=== PATIENT | male | born 1950 | race Caucasian/White ===

== ENCOUNTER 2018-07-07 10:36 | Inpatient (IN) | payer MEDICAID, MEDICARE ==
[~2018-07-07] VITALS: Ht 162.6 cm; Wt 81.6 kg
--- NOTE | 2018-07-07 11:00 | NUR ---
PATIENT TO BED 6 VIA WHEELCHAIR AT THIS TIME.
[2018-07-07 11:05] VITALS: BP 141/87
--- NOTE | 2018-07-07 11:10 | NUR ---
PATIENT BIB CAREGIVER WITH C/O HYPOTHERMIA SINCE LAST NIGHT, TEMP 93.7F, PT IS AAOX2, (PERSON AND PLACE), BOTH EYES BLIND, ABLE TO FOLLOW COMMANDS, NO S/S OF DISTRESS, CLEAR LUNG SOUNDS, DENIES CHEST PAIN, PITTING EDEMA NOTED TO BLE, SOFT ABDOMEN WITH ACTIVE BOWEL SOUNDS, DENIES N/V/D, INCONTINENT WITH B&B'S, CONTRACTURES NOTED TO ALL EXTREMITIES. STATED GENERALIZED PAIN 10/10. PATIENT POSITIONED FOR COMFORT; HOB ELEVATED; BEDRAILS UP X2; BED DOWN. ER MD MADE AWARE OF PT STATUS.
[2018-07-07 12:05] LABS: BASOPHILS % (AUTO) 0.2 % (0.0-2.0); EOSINOPHILS # (AUTO) 0.3 K/uL (0-0.4); EOSINOPHILS % (AUTO) 5.4 % (0.0-4.0); HEMATOCRIT 39.1 % (36-52); HEMOGLOBIN 12.6 g/dL (12.0-18.0); LYMPHOCYTES # (AUTO) 1.5 K/uL (2.0-11.5); LYMPHOCYTES % (AUTO) 31.2 % (20.5-51.1); MEAN CORPUSCULAR HEMOGLOBIN 31 pg (27-31); MEAN CORPUSCULAR HGB CONC 32 g/dL (33-37); MEAN CORPUSCULAR VOLUME 96.4 fL (80-94); MONOCYTES # (AUTO) 0.4 K/uL (0.8-1.0); MONOCYTES % (AUTO) 9.5 % (1.7-9.3); NEUTROPHILS # (AUTO) 2.5 K/uL (1.8-7.7); NEUTROPHILS % (AUTO) 53.7 % (42.2-75.2); PLATELET COUNT (AUTO) 178 K/uL (140-450); RED BLOOD CELL COUNT(AUTO) 4.05 MIL/uL (4.20-6.10); RED CELL DISTRIBUTION WIDTH 13.9 % (11.6-13.7); WHITE BLOOD COUNT (AUTO) 4.7 K/uL (4.8-10.8)
[2018-07-07 12:16] LABS: ANION GAP 11.4 (8-16); CARBON DIOXIDE 30.5 mmol/L (21-32); CREATININE 1.2 mg/dL (0.7-1.3); POTASSIUM 4.9 mmol/L (3.5-5.1)
[2018-07-07 12:31] LABS: ALBUMIN 3.2 g/dL (3.4-5.0); TOTAL BILIRUBIN 0.2 mg/dL (0.0-1.0)
[2018-07-07 12:46] LABS: PROTHROMBIN TIME 10.4 secs (10.8-13.4)
[2018-07-07] MEDS ORDERED: LEVOFLOXACIN 500 MG/D5W PREMIX 100 ML IV ONE (12:55)
--- NOTE | 2018-07-07 12:58 | NUR ---
RECTAL TEMP OBTAINED 94.2F, DR. MONACO MADE AWARE.
[2018-07-07] MEDS ORDERED: ONDANSETRON 4 MG/2 ML VIAL IM/IVP PRN (13:05)
[2018-07-07] MEDS ORDERED: DOCUSATE SODIUM 100 MG GELCAP PO PRN (13:05)
[2018-07-07] MEDS ORDERED: HYDROcodone/APAP 5/325 MG 1 TAB TAB PO PRN (13:05)
[2018-07-07] MEDS ORDERED: ACETAMINOPHEN 325 MG TAB PO PRN (13:05)
--- NOTE | 2018-07-07 13:06 | NUR ---
# 14 FR Urinary catheter inserted utilizing sterile technique. Immediate return of 100 ml CLEAR YELLOW urine noted. Urine sample collected and sent to lab. Pt tolerated procedure WELL.
[2018-07-07] MEDS: NACL 0.9% 1,000 ML IV SCH (13:27)
[2018-07-07] MEDS ORDERED: ALBUTEROL SULFATE/IPRATROPIU 3 ML SOL IH PRN (14:00)
--- NOTE | 2018-07-07 14:08 | NUR ---
Patient will be admitted to care of DR BIRD. Admited to MED SURG. Will go to room 122 -A. Belongings list completed. Report to MARIZA DIXON.
[2018-07-07 14:11] LABS: APPEARANCE,URINE CLEAR (CLEAR); BILIRUBIN,URINE NEGATIVE (NEGATIVE); BLOOD, URINE NEGATIVE (NEGATIVE); COLOR,URINE YELLOW (YELLOW); LEUKOCYTE ESTERASE ,URINE NEGATIVE (NEGATIVE); NITRITE, URINE NEGATIVE (NEGATIVE); UGLUCOSE NEGATIVE (NEGATIVE)
[2018-07-07] MEDS ORDERED: ISOS20TA13 PO (14:11)
[2018-07-07] MEDS ORDERED: BRIM5SOL1 OP (14:11)
[2018-07-07] MEDS ORDERED: PRON INH (14:11)
[2018-07-07] MEDS ORDERED: PUL.5N INH (14:11)
[2018-07-07] MEDS ORDERED: CLOP75TA55 PO (14:11)
[2018-07-07] MEDS ORDERED: RANEX500 PO (14:11)
[2018-07-07] MEDS ORDERED: DOCU-299 PO (14:11)
[2018-07-07] MEDS ORDERED: LAM200 PO (14:11)
[2018-07-07] MEDS ORDERED: SENN-72 PO (14:11)
[2018-07-07] MEDS ORDERED: [UNRECOGNIZED DRUG - CODE] TP (14:11)
[2018-07-07] MEDS ORDERED: DORZ10SO1 OP (14:11)
[2018-07-07] MEDS ORDERED: ATOR20TA40 PO (14:11)
[2018-07-07] MEDS ORDERED: LISI-420 PO (14:11)
[2018-07-07] MEDS ORDERED: AMLO5TAB PO (14:11)
[2018-07-07] MEDS ORDERED: DUTA0.5C PO (14:11)
[2018-07-07] MEDS ORDERED: SERT25TA PO (14:11)
[2018-07-07] MEDS ORDERED: ASCO500T45 PO (14:20)
[2018-07-07] MEDS ORDERED: TIM.5OS OP (14:20)
[2018-07-07] MEDS ORDERED: CLON0.1T42 PO (14:20)
[2018-07-07] MEDS ORDERED: MAGN400S60 PO (14:20)
[2018-07-07] MEDS ORDERED: ACET-7568 PO (14:20)
[2018-07-07] MEDS ORDERED: NITR0.4S14 SL (14:20)
[2018-07-07] MEDS ORDERED: FEXO180T82 PO (14:20)
[2018-07-07 14:22] LABS: MAGNESIUM 2.1 mg/dL (1.8-2.4); PHOSPHORUS 4.6 mg/dL (2.5-4.9); THYROID STIMULATING HORMONE 2.61 uIU/mL (0.34-3.74)
[2018-07-07 14:30] VITALS: BP 157/87
--- NOTE | 2018-07-07 14:30 | NUR ---
PATIENT WAS TRANSFERRED FROM ED BY LUBA. REPORT WAS GIVEN AT BEDSIDE. VS WAS TAKEN. MRSA WAS SWABBED. PATIENT WAS DROWSY, ABLE TO OPEN EYES BY NAME, COOPERATIVE. RESPIRATION EVEN, UNLABOR ON ROOM AIR. SKIN DRY AND WARM. IV PATENT AND INTACT. DENIED PAIN AT THIS TIME. PATIENT WAS ORIENTED TO ROOM, STAFF, AND CALL LIGHT. PLAN OF CARE WAS DISCUSSED WITH PATIENT. BED AT LOW POSITION, SIDE RAILS UP. CALL LIGHT WITHIN REACH. MEDICAL HISTORY WAS OBTAINED FROM MARIANA RN AT RESIDENTIAL CARE.
[2018-07-07] MEDS ORDERED: cloNIDine 0.1 MG TAB PO PRN ×2 (14:35→16:45)
[2018-07-07] MEDS ORDERED: MAGNESIUM HYDROXIDE 2400 MG/30 ML UDC PO PRN ×2 (14:35→16:50)
[2018-07-07] MEDS ORDERED: NITROGLYCERIN 0.4 MG TAB SL PRN (14:35)
[2018-07-07] MEDS ORDERED: ISOS20TA11 PO (15:15)
[2018-07-07] MEDS ORDERED: ISOS30TE34 PO (15:15)
[2018-07-07 16:00] VITALS: BP 129/65
--- NOTE | 2018-07-07 16:30 | NUR ---
PATIENT LYING DOWN IN BED SLEEPING, AROUSABLE BY VOICE. NO DISTRESS NOTED. WILL CONTINUE TO MONITOR.
[2018-07-07] MEDS ORDERED: DORZOLAMIDE 2% OP 10 ML BTL RIGHT EYE SCH (17:00)
--- NOTE | 2018-07-07 17:21 | NUR ---
PATIENT LYING DOWN IN BED SLEEPING, AROUSABLE BY VOICE. SCHEDULED MEDICATIONS DUE GIVEN. WILL CONTINUE TO MONITOR.
--- NOTE | 2018-07-07 18:00 | NUR ---
APPLIED K PAD TO PATIENT CHEST AND WARM BLANKETS PER MD ORDERS. WILL CONTINUE TO MONITOR.
[2018-07-07] MEDS: CLINDAMYCIN 600 MG in DEXTROSE 5% 50 ML IV SCH ×2 (18:21→23:55)
--- NOTE | 2018-07-07 19:33 | NUR ---
GAVE REPORT TO DUPLEX TRIMMER NURSE FOR CONTINUITY OF CARE. PATIENT IN STABLE CONDITION.
--- NOTE | 2018-07-07 19:34 | NUR ---
RECEIVED BEDSIDE REPORT FROM DAY SHIFT NURSE DARYL RN, PT STABLE, NO DISTRESS NOTED, IV TO R HAND 22G PATENT, INTACT, INFUSING NS @ 60ML/HR, INFUSING WELL PT ON ROOM AIR, NO SOB, PT SLEEPING AT THIS MOMENT,INITIAL ASSESSMENT DONE, ALL SAFETY PRECAUTION MET, CALL LIGHT WITHIN REACH, WILL CONTINUE TO MONITOR.
[2018-07-07] MEDS: ALBUTEROL SULFATE/IPRATROPIU 3 ML SOL IH SCH (19:52)
[2018-07-07] MEDS: BUDESONIDE 0.5 MG/2 ML NEBU INH SCH (19:53)
--- NOTE | 2018-07-07 20:10 | NUR ---
RECEIVED PATIENT ON ROOM AIR, O2 SAT 96%. SCHEDULED BREATHING TREATMENT ADMINISTERED. PATIENT TOLERATED TX WELL, NO ADVERSE SIDE EFFECTS. ORAL CARE PROVIDED POST TX. NO RESPIRATORY DISTRESS NOTED AT THIS TIME. WILL CONTINUE TO MONITOR.
[2018-07-07] MEDS ORDERED: TIMOLOL OP 0.5% 5 ML BTL RIGHT EYE SCH (21:00)
[2018-07-07] MEDS: RANOLAZINE 500 MG TER PO SCH ×2 (21:00→21:52)
[2018-07-07] MEDS: ISOSORBIDE MONONITRATE 30 MG TABER PO SCH ×2 (21:00→21:54)
[2018-07-07] MEDS: ATORVASTATIN 20 MG TAB PO SCH ×2 (21:00→21:53)
[2018-07-07] MEDS ORDERED: BRIMONIDINE TARTRATE 0.2% OP 5 ML BTL RIGHT EYE SCH (21:00)
[2018-07-07] MEDS: TIMOLOL OP 0.5% 5 ML BTL RIGHT EYE SCH (21:00)
[2018-07-07] MEDS: SENNA 8.6 MG TAB PO SCH ×2 (21:00→21:53)
[2018-07-07] MEDS: DOCUSATE SODIUM 100 MG GELCAP PO SCH ×2 (21:00→21:53)
[2018-07-07] MEDS: BRIMONIDINE TARTRATE 0.2% OP 5 ML BTL RIGHT EYE SCH ×2 (21:00→22:00)
[2018-07-07] MEDS: LISINOPRIL 20 MG TAB PO SCH ×2 (21:00→21:54)
[2018-07-07] MEDS: SERTRALINE 50 MG TAB PO SCH ×2 (21:00→21:54)
[2018-07-07] MEDS: amLODIPine 5 MG TAB PO SCH ×2 (21:00→21:54)
--- NOTE | 2018-07-07 21:00 | NUR ---
PT REFUSED MEDICATION, STATED WHEN ASKED NO, AND WOULD NOT TAKE ANY MEDICATION, NOTIFIED DR. TEIXEIRA REGARDING PT REFUSAL, STATED UNDERSTANDING, PT RESTING, NO DISTRESS NOTED, CALL LIGHT WITHIN REACH, WILL CONTINUE TO MONITOR.
--- NOTE | 2018-07-07 21:00 | NUR ---
MEDICATION TIMOLOL CAN NOT BE FOUND ON PT CASSETTE. PT ALSO REFUSED MEDICATION, PT RESTING, NO DISTRESS NOTED, CALL LIGHT WITHIN REACH, WILL CONTINUE TO MONITOR.
[2018-07-08] VITALS: BP 127/74
--- NOTE | 2018-07-08 00:10 | NUR ---
CHECKED ON PT, PT SLEEPING, NO DISTRESS NOTED, V/S TAKEN, WITHIN PT BASELINE, CALL LIGHT WITHIN REACH, WILL CONTINUE TO MONITOR.
--- NOTE | 2018-07-08 04:01 | NUR ---
PT SLEEPING, NO DISTRESS NOTED, CALL LIGHT WITHIN REACH, WILL CONTINUE TO MONITOR.
[2018-07-08] MEDS: CLINDAMYCIN 600 MG in DEXTROSE 5% 50 ML IV SCH ×2 (05:21→12:29)
[2018-07-08] MEDS: NACL 0.9% 1,000 ML IV SCH ×2 (05:22→22:22)
[2018-07-08] MEDS: ALBUTEROL SULFATE/IPRATROPIU 3 ML SOL IH SCH ×3 (07:06→13:45)
[2018-07-08] MEDS: BUDESONIDE 0.5 MG/2 ML NEBU INH SCH ×2 (07:06→19:25)
--- NOTE | 2018-07-08 07:15 | NUR ---
RECEIVED REPORT FROM RN PALLIATIVE NURSE AT THE BEDSIDE, PT IS SLEEPING, NO S/S OF ACUTE DISTRESS NOTED ON RM AIR, IV TO R HAND DISLODGED, 22G TIP INTACT, PRESSURE APPLIED. PT HAS RUE CONTRACTURE, BLE WEAKNESS. ALL SAFETY PRECAUTION MET, BED ALARM ON, CALL LIGHT WITHIN REACH, WILL CONTINUE TO MONITOR.
--- NOTE | 2018-07-08 07:29 | NUR ---
ENDORSED PT TO DAY SHIFT NURSE REE RN, PT IN STABLE CONDITION, NO DISTRESS NOTED, CALL LIGHT WITHIN REACH.
[2018-07-08 08:00] VITALS: BP 160/66
[2018-07-08 08:03] LABS: BASOPHILS % (AUTO) 0.4 % (0.0-2.0); EOSINOPHILS # (AUTO) 0.2 K/uL (0-0.4); EOSINOPHILS % (AUTO) 4.8 % (0.0-4.0); HEMATOCRIT 38.9 % (36-52); HEMOGLOBIN 12.8 g/dL (12.0-18.0); LYMPHOCYTES # (AUTO) 0.7 K/uL (2.0-11.5); MEAN CORPUSCULAR HEMOGLOBIN 31 pg (27-31); MEAN CORPUSCULAR HGB CONC 33 g/dL (33-37); MONOCYTES # (AUTO) 0.3 K/uL (0.8-1.0); MONOCYTES % (AUTO) 7.1 % (1.7-9.3); NEUTROPHILS # (AUTO) 3.4 K/uL (1.8-7.7); NEUTROPHILS % (AUTO) 73.7 % (42.2-75.2); PLATELET COUNT (AUTO) 148 K/uL (140-450); RED CELL DISTRIBUTION WIDTH 13.9 % (11.6-13.7); WHITE BLOOD COUNT (AUTO) 4.7 K/uL (4.8-10.8)
[2018-07-08 08:21] LABS: ANION GAP 13.4 (8-16); CREATININE 0.9 mg/dL (0.7-1.3); POTASSIUM 4.4 mmol/L (3.5-5.1)
[2018-07-08 08:22] LABS: MAGNESIUM 1.7 mg/dL (1.8-2.4); PHOSPHORUS 3.5 mg/dL (2.5-4.9)
[2018-07-08] MEDS ORDERED: DUTASTERIDE 0.5 MG PO SCH (09:00)
--- NOTE | 2018-07-08 09:11 | NUR ---
PATIENT HAS BEEN SCREENED AND CATEGORIZED MODERATE NUTRITION RISK. PATIENT WILL BE SEEN WITHIN 3-5 DAYS OF ADMISSION. 07/10/18 07/12/[address]
[2018-07-08] MEDS: LISINOPRIL 20 MG TAB PO SCH ×2 (09:30→21:22)
--- NOTE | 2018-07-08 09:30 | NUR ---
PT HAD BREAKFAST WITH ASSISTANCE FROM MANAGER OF CORPORATE COMMUNICATIONS. PT TOOK HIS SCHEDULED MEDS WITH APPLE SAUCE. NEW IV STARTED ON LEFT AC 20G. PT TOLERATED WELL.
[2018-07-08] MEDS: LACTOBACILLUS RHAMNOSUS GG 1 EACH CAP PO SCH (09:31)
[2018-07-08] MEDS: SENNA 8.6 MG TAB PO SCH ×2 (09:31→21:23)
[2018-07-08] MEDS: ASCORBIC ACID 500 MG TAB PO SCH (09:31)
[2018-07-08] MEDS: DOCUSATE SODIUM 100 MG GELCAP PO SCH ×2 (09:31→21:22)
[2018-07-08] MEDS: ISOSORBIDE MONONITRATE 30 MG TABER PO SCH ×2 (09:32→21:22)
[2018-07-08] MEDS: CLOPIDOGREL 75 MG TAB PO SCH (09:32)
[2018-07-08] MEDS: amLODIPine 5 MG TAB PO SCH ×2 (09:32→21:22)
[2018-07-08] MEDS: RANOLAZINE 500 MG TER PO SCH ×2 (09:33→21:38)
[2018-07-08] MEDS: DORZOLAMIDE 2% OP 10 ML BTL RIGHT EYE SCH ×4 (09:34→21:23)
[2018-07-08] MEDS: BRIMONIDINE TARTRATE 0.2% OP 5 ML BTL RIGHT EYE SCH ×2 (09:41→21:35)
[2018-07-08] MEDS: TIMOLOL OP 0.5% 5 ML BTL RIGHT EYE SCH ×2 (09:45→21:24)
--- NOTE | 2018-07-08 09:50 | NUR ---
PT HAD BED BATH, CHUX CHANGED, PT WAS TURNED FACING DOOR.
[2018-07-08] MEDS ORDERED: MAG SULF 2000 MG/WATER PREMIX 50 ML IV ONE (12:10)
--- NOTE | 2018-07-08 12:23 | NUR ---
PT WAS CLEANED, CHUX CHANGED, URINE X1. PT IS ON SUPINE.
--- NOTE | 2018-07-08 12:32 | NUR ---
CORTEZ APPLIED, TEMP SETTING AT 38C. PT IS SLEEPING, WOKE PT UP, PT REFUSED LUNCH AT THIS TIME.
[2018-07-08] MEDS: MAGNESIUM SULFATE 1GM in DEXTROSE 5% 100 ML PREMIX IV SCH ×2 (13:39→15:45)
--- NOTE | 2018-07-08 14:50 | NUR ---
PT WAS CLEANED BMX1, CHUX CHANGED, TURNED PT TO FACE WINDOW
--- NOTE | 2018-07-08 15:00 | NUR ---
CALLED YARED, PT'S B&C AUTOMATION SPECIALIST, [phone], REGARDING HOME MED, DUTASTERIDE. YARED SAID HE WILL SEND SOMEONE TO BRING IT TMR.
[2018-07-08 16:00] VITALS: BP 135/64
--- NOTE | 2018-07-08 17:01 | NUR ---
PT WAS CLEANED, URINE X1 AND CHANGED PT TO SUPINE
--- NOTE | 2018-07-08 18:00 | NUR ---
PT HAD DINNER WITH ASSISTANCE FROM REAL ESTATE ACCOUNTANT. PT ATE WELL.
--- NOTE | 2018-07-08 18:20 | NUR ---
* ST NOTE * Pt seen at bedside w/Nsg Eladio present. Pt asleep upon entering room. Upon awakening, pt alert, cooperative and engaged throughout session, reporting no c/o pain at this time. Bedside dysphagia exam and oral mechanism exams completed. See evaluation report for further details. Pt tolerating 0/1 alternating PO trial of regular solid saltine cracker, presenting with lingual residue of solids after PO intake. Pt then tolerating 8/9 alternating PO trials of successive sips of thin liquid apple and orange juices through a straw w/o s/s of aspiration, demonstrating coughing after 1 trial. Pt lastly tolerating 4/4 alternating PO trials of mechanical soft dinner meal w/o s/s of aspiration or choking. Pt and caregiver/nsg Eladio education completed re: aspiration precautions and safe swallow compensatory strategies pt and caregivers could utilize to aid pt w/swallow function, w/pt and caregiver/Nsg Eladio verbalizing understanding and agreement w/clinician's recommendations. It is thus recommended pt's PO diet consistency be modified to mechanical soft textures w/thin liquids for all meals w/aspiration precautions in place, w/pt and caregiver/nsg agreeable. No further ST follow up recommended at this time. Pt and caregiver/Nsg Eladio education completed re: results of evaluation; benefits of abiding by aspiration precautions and recommended PO diet consistency; and prognosis for improvement; with pt and caregiver/Nsg Eladio verbalizing understanding and agreement w/clinician's recommendations. Recommend: - PO diet consistency of MECHANICAL SOFT TEXTURES W/THIN LIQUIDS for all meals - PO MEDICATION ADMINISTRATION CRUSHED IN PUREE TEXTURES - Maintain STRICT ASPIRATION PRECAUTIONS DURING PT'S PO INTAKE - Pt requires total assistance w/feeding - Feeder to SIT PT UP AT 80-90 DEGREES DURING PO INTAKE, FEED PT SLOWLY, ALTERNATING BTWN SOLIDS & LIQUIDS, AND UTILIZING SMALL BITES/SIPS No further ST follow up recommended at this time. G8996 CJ G8997 CI G8998 CI NOMS Level 2 Time In/Out 17:50 - 18:20
[2018-07-08] MEDS: CLINDAMYCIN PHOS 600MG/D5W PM 50 ML IV SCH (18:43)
--- NOTE | 2018-07-08 19:20 | NUR ---
ENDORSED PT TO PIANO STRINGER NURSE, PT IN STABLE CONDITION.
--- NOTE | 2018-07-08 19:21 | NUR ---
RECEIVED BEDSIDE REPORT FROM DAY SHIFT NURSE REE RN, PT STABLE, NO DISTRESS NOTED, IV TO L AC 20G PATENT, INTACT, INFUSING NS @ 60ML/HR, INFUSING WELL, PT ON ROOM AIR, NO SOB, PT SLEEPING COMFORTABLY, INITIAL ASSESSMENT DONE, ALL SAFETY PRECAUTION MET, CALL LIGHT WITHIN REACH WILL CONTINUE TO MONITOR.
[2018-07-08] MEDS: SERTRALINE 50 MG TAB PO SCH (21:22)
[2018-07-08] MEDS: ATORVASTATIN 20 MG TAB PO SCH (21:23)
--- NOTE | 2018-07-08 21:24 | NUR ---
DUE MEDICATION ADMINISTERED, PT TOLERATED WELL, NO DISTRESS NOTED, CALL LIGHT WITHIN REACH, WILL CONTINUE TO MONITOR.
--- NOTE | 2018-07-08 23:40 | NUR ---
CHECKED ON PT, PT SLEEPING, NO DISTRESS NOTED, V/S TAKEN, WNL, CALL LIGHT WITHIN REACH, WILL CONTINUE TO MONITOR.
[2018-07-09 00:06] VITALS: BP 112/58
[2018-07-09] MEDS: CLINDAMYCIN PHOS 600MG/D5W PM 50 ML IV SCH ×4 (00:14→18:20)
--- NOTE | 2018-07-09 00:14 | NUR ---
DUE MEDICATION ADMINISTERED, PT TOLERATED WELL, NO DISTRESS NOTED, CALL LIGHT WITHIN REACH, WILL CONTINUE TO MONITOR.
--- NOTE | 2018-07-09 05:27 | NUR ---
DUE MEDICATION ADMINISTERED, PT TOLERATED WELL, NO DISTRESS NOTED, CALL LIGHT WITHIN REACH, WILL CONTINUE TO MONITOR.
[2018-07-09] MEDS: ALBUTEROL SULFATE/IPRATROPIU 3 ML SOL IH SCH ×3 (06:55→19:26)
[2018-07-09] MEDS: BUDESONIDE 0.5 MG/2 ML NEBU INH SCH ×2 (06:56→19:26)
[2018-07-09 07:17] LABS: BASOPHILS % (AUTO) 0.3 % (0.0-2.0); EOSINOPHILS # (AUTO) 0.2 K/uL (0-0.4); EOSINOPHILS % (AUTO) 3.7 % (0.0-4.0); HEMATOCRIT 31.9 % (36-52); HEMOGLOBIN 10.6 g/dL (12.0-18.0); LYMPHOCYTES # (AUTO) 1.2 K/uL (2.0-11.5); LYMPHOCYTES % (AUTO) 20.8 % (20.5-51.1); MEAN CORPUSCULAR HEMOGLOBIN 32 pg (27-31); MEAN CORPUSCULAR HGB CONC 33 g/dL (33-37); MEAN CORPUSCULAR VOLUME 94.7 fL (80-94); MONOCYTES # (AUTO) 0.4 K/uL (0.8-1.0); MONOCYTES % (AUTO) 7.3 % (1.7-9.3); NEUTROPHILS # (AUTO) 3.9 K/uL (1.8-7.7); NEUTROPHILS % (AUTO) 67.9 % (42.2-75.2); PLATELET COUNT (AUTO) 159 K/uL (140-450); RED BLOOD CELL COUNT(AUTO) 3.37 MIL/uL (4.20-6.10); RED CELL DISTRIBUTION WIDTH 13.9 % (11.6-13.7); WHITE BLOOD COUNT (AUTO) 5.7 K/uL (4.8-10.8)
[2018-07-09 07:21] LABS: ANION GAP 10.2 (8-16); CARBON DIOXIDE 28.3 mmol/L (21-32); CREATININE 1.2 mg/dL (0.7-1.3); POTASSIUM 4.5 mmol/L (3.5-5.1)
[2018-07-09 07:26] LABS: PHOSPHORUS 3.7 mg/dL (2.5-4.9)
--- NOTE | 2018-07-09 07:27 | NUR ---
ENDORSED PT TO DAY SHIFT NURSE RIRI DAWKINS, PT STABLE, NO DISTRESS NOTED. CALL LIGHT WITHIN REACH.
--- NOTE | 2018-07-09 07:28 | NUR ---
RECEIVED REPORT FROM PEDIATRIC PHYSICAL THERAPIST NURSE. PT IN STABLE CONDITION. RESPIRATIONS EVEN AND UNLABORED. IV INTACT AND PATENT. SAFETY MEASURES IN PLACE. BED IN LOW POSITION. CALL LIGHT AT BEDSIDE. WILL CONTINUE TO MONITOR.
[2018-07-09 08:00] VITALS: BP 129/62
--- NOTE | 2018-07-09 09:00 | NUR ---
GAVE ORDERED DUE MEDICATIONS, PT TOLERATED WELL. WILL CONTINUE TO MONITOR.
[2018-07-09] MEDS ORDERED: FINASTERIDE 5 MG TAB PO SCH (10:00)
[2018-07-09] MEDS: DOCUSATE SODIUM 100 MG GELCAP PO SCH ×2 (10:18→22:05)
[2018-07-09] MEDS: SENNA 8.6 MG TAB PO SCH ×2 (10:19→22:05)
[2018-07-09] MEDS: LISINOPRIL 20 MG TAB PO SCH ×2 (10:19→22:04)
[2018-07-09] MEDS: LACTOBACILLUS RHAMNOSUS GG 1 EACH CAP PO SCH (10:19)
[2018-07-09] MEDS: amLODIPine 5 MG TAB PO SCH ×2 (10:20→22:05)
[2018-07-09] MEDS: CLOPIDOGREL 75 MG TAB PO SCH (10:20)
[2018-07-09] MEDS: ASCORBIC ACID 500 MG TAB PO SCH (10:20)
[2018-07-09] MEDS: ISOSORBIDE MONONITRATE 30 MG TABER PO SCH ×2 (10:21→22:05)
[2018-07-09] MEDS: TIMOLOL OP 0.5% 5 ML BTL RIGHT EYE SCH ×2 (10:23→13:44)
[2018-07-09] MEDS: BRIMONIDINE TARTRATE 0.2% OP 5 ML BTL RIGHT EYE SCH ×2 (10:23→22:03)
[2018-07-09] MEDS: RANOLAZINE 500 MG TER PO SCH ×2 (10:24→22:03)
--- NOTE | 2018-07-09 11:30 | NUR ---
ASSISTED STEEL INSPECTOR IN REPOSITIONING PT TO RIGHT SIDE. PT TOLERATED WELL. WILL CONTINUE TO MONITOR.
--- NOTE | 2018-07-09 11:45 | NUR ---
MOVED PT TO ROOM 116 DUE TO MRSA NARES POSITIVE RESULT.
[2018-07-09] MEDS ORDERED: MUPIROCIN CA NASAL 2% 1GM TUBE NS SCH (13:00)
[2018-07-09] MEDS ORDERED: CHLORHEXADINE GLUC 2% CLOTH TP SCH (13:00)
[2018-07-09] MEDS: DORZOLAMIDE 2% OP 10 ML BTL RIGHT EYE SCH ×2 (13:58→17:16)
--- NOTE | 2018-07-09 14:00 | NUR ---
YARED HIS PASTER SUPERVISOR STOPPED BY. PT IS HOUSED AT [facility] IN [place]. YARED CAN BE REACHED AT FOR QUESTIONING AT DISCHARGE.
[2018-07-09] MEDS: NACL 0.9% 1,000 ML IV SCH (15:02)
[2018-07-09 16:00] VITALS: BP 130/67
--- NOTE | 2018-07-09 17:00 | NUR ---
GAVE ORDERED DUE MEDICATION. ASSISTED IN CLEANING PT AFTER URINATION. PT TOLERATED WELL. WILL CONTINUE TO MONITOR.
--- NOTE | 2018-07-09 19:23 | NUR ---
GAVE REPORT TO NIGHT NURSE FOR CONTINUITY OF CARE. PT IN STABLE CONDITION.
--- NOTE | 2018-07-09 19:24 | NUR ---
RECEIVED BEDSIDE REPORT FROM DAY SHIFT NURSE RIRI RN, PT STABLE, NO DISTRESS NOTED, IV TO L AC 20G PATENT INTACT, INFUSING NS @ 60ML/HR, INFUSING WELL, PT ON ROOM AIR NO SOB, INITIAL ASSESSMENT DONE, ALL SAFETY PRECAUTION MET, CALL LIGHT WITHIN REACH, WILL CONTINUE TO MONITOR. CALL LIGHT WITHIN REACH, WILL CONTINUE TO MONITOR.
[2018-07-09] MEDS: ATORVASTATIN 20 MG TAB PO SCH (22:05)
[2018-07-09] MEDS: SERTRALINE 50 MG TAB PO SCH (22:05)
--- NOTE | 2018-07-09 22:05 | NUR ---
DUE MEDICATION ADMINISTERED, PT TOLERATED WELL, NO DISTRESS NOTED, CALL LIGHT WITHIN REACH, WILL CONTINUE TO MONTIOR.
[2018-07-10] VITALS: BP 130/64
[2018-07-10] MEDS: CLINDAMYCIN PHOS 600MG/D5W PM 50 ML IV SCH ×4 (00:26→17:12)
--- NOTE | 2018-07-10 00:26 | NUR ---
DUE MEDICATION ADMINISTERED, PT TOLERATED WELL, V/S TAKEN, WNL, CALL LIGHT WITHIN REACH, WILL CONTINUE TO MONITOR.
--- NOTE | 2018-07-10 03:10 | NUR ---
CHECKED ON PT, PT RESTING NO DISTRESS NOTED, CALL LIGHT WITHIN REACH, WILL CONTINUE TO MONITOR.
[2018-07-10 06:35] LABS: BASOPHILS % (AUTO) 0.4 % (0.0-2.0); EOSINOPHILS # (AUTO) 0.3 K/uL (0-0.4); EOSINOPHILS % (AUTO) 5.6 % (0.0-4.0); HEMATOCRIT 34.1 % (36-52); HEMOGLOBIN 11.1 g/dL (12.0-18.0); LYMPHOCYTES # (AUTO) 1.7 K/uL (2.0-11.5); LYMPHOCYTES % (AUTO) 37.1 % (20.5-51.1); MEAN CORPUSCULAR HEMOGLOBIN 31 pg (27-31); MEAN CORPUSCULAR HGB CONC 33 g/dL (33-37); MEAN CORPUSCULAR VOLUME 95.4 fL (80-94); MONOCYTES # (AUTO) 0.5 K/uL (0.8-1.0); MONOCYTES % (AUTO) 10.6 % (1.7-9.3); NEUTROPHILS # (AUTO) 2.1 K/uL (1.8-7.7); NEUTROPHILS % (AUTO) 46.3 % (42.2-75.2); PLATELET COUNT (AUTO) 161 K/uL (140-450); RED BLOOD CELL COUNT(AUTO) 3.57 MIL/uL (4.20-6.10); RED CELL DISTRIBUTION WIDTH 13.7 % (11.6-13.7); WHITE BLOOD COUNT (AUTO) 4.6 K/uL (4.8-10.8)
[2018-07-10 07:06] LABS: ANION GAP 11.4 (8-16); CARBON DIOXIDE 28.1 mmol/L (21-32); POTASSIUM 4.5 mmol/L (3.5-5.1)
[2018-07-10 07:07] LABS: CREATININE 1.2 mg/dL (0.7-1.3)
[2018-07-10] MEDS: ALBUTEROL SULFATE/IPRATROPIU 3 ML SOL IH SCH ×3 (07:15→19:42)
--- NOTE | 2018-07-10 07:30 | NUR ---
ENDORSED PT TO DAY SHIFT NURSE KY RN, PT STABLE, NO DISTRESS NOTED, CALL LIGHT WITHIN REACH.
--- NOTE | 2018-07-10 07:31 | NUR ---
RECEIVED BEDSIDE REPORT FROM ANIMAL NUTRITIONIST [id number]. PT RESTING IN BED WITH EYES CLOSED, AROUSABLE, NO DISTRESS NOTED, IV SITE PATENT INTACT, INFUSING NS @ 60ML/HR WELL. RESPIRATIONS EVEN AND UNLABORED, NO DISTRESS OR SOB NOTED ON ROOM AIR. UPDATED BOARD. UPDATED PLAN OF CARE TO PATIENT, HE VERBALIZED UNDERSTANDING. PATIENT ON ISOLATION PRECAUTION FOR MRSA OF THE NARES. SAFETY, SEIZURE, AND ISOLATION PRECAUTION IN PLACE, BED IN LOWEST POSITION WITH BRAKES ON, CALL LIGHT WITHIN REACH, WILL CONTINUE TO MONITOR PATIENT.
[2018-07-10] MEDS: NACL 0.9% 1,000 ML IV SCH ×2 (07:42→21:55)
[2018-07-10 08:00] VITALS: BP 140/85
[2018-07-10] MEDS: BUDESONIDE 0.5 MG/2 ML NEBU INH SCH ×2 (08:23→19:42)
[2018-07-10] MEDS: DOCUSATE SODIUM 100 MG GELCAP PO SCH ×2 (09:53→20:31)
[2018-07-10] MEDS: ISOSORBIDE MONONITRATE 30 MG TABER PO SCH ×2 (09:53→20:33)
[2018-07-10] MEDS: MUPIROCIN CA NASAL 2% 1GM TUBE NS SCH (09:53)
[2018-07-10] MEDS: LACTOBACILLUS RHAMNOSUS GG 1 EACH CAP PO SCH (09:54)
[2018-07-10] MEDS: RANOLAZINE 500 MG TER PO SCH ×2 (09:54→20:33)
[2018-07-10] MEDS: LISINOPRIL 20 MG TAB PO SCH ×2 (09:54→20:32)
[2018-07-10] MEDS: ASCORBIC ACID 500 MG TAB PO SCH (09:54)
[2018-07-10] MEDS: SENNA 8.6 MG TAB PO SCH ×2 (09:54→20:31)
[2018-07-10] MEDS: amLODIPine 5 MG TAB PO SCH ×2 (09:54→20:33)
[2018-07-10] MEDS: BRIMONIDINE TARTRATE 0.2% OP 5 ML BTL RIGHT EYE SCH ×2 (09:55→20:34)
[2018-07-10] MEDS: FINASTERIDE 5 MG TAB PO SCH (09:55)
[2018-07-10] MEDS: DORZOLAMIDE 2% OP 10 ML BTL RIGHT EYE SCH ×3 (09:55→16:20)
[2018-07-10] MEDS: CLOPIDOGREL 75 MG TAB PO SCH (09:55)
--- NOTE | 2018-07-10 09:55 | NUR ---
ORDERED MEDICATIONS GIVEN WITH APPLESAUCE. PATIENT TOLERATED THEM WELL. PATIENT HAS NO COMPLAINTS AT THIS TIME, DENIES PAIN. PATIENT VOIDED, PATIENT CLEANED UP, LINENS CHANGED. PATIENT NOW RESTING COMFORTABLY IN BED, SAFETY, ISOLATION, AND SEIZURE PRECAUTION IN PLACE, CALL LIGHT WITHIN REACH, WILL CONTINUE TO MONITOR PATIENT.
[2018-07-10] MEDS: CHLORHEXADINE GLUC 2% CLOTH TP SCH (09:56)
[2018-07-10] MEDS: TIMOLOL OP 0.5% 5 ML BTL RIGHT EYE SCH ×2 (09:56→20:34)
--- NOTE | 2018-07-10 10:20 | NUR ---
PATIENT VOIDED, PATIENT CHANGED, CLEANED AND IS NOW RESTING IN BED, NO COMPLAINTS AT THIS TIME, RESPIRATIONS EVEN AND UNLABORED ON ROOM AIR. WILL CONTINUE TO MONITOR PATIENT.
[2018-07-10] MEDS ORDERED: MAGNESIUM OXIDE 400 MG TAB PO SCH (13:30)
--- NOTE | 2018-07-10 13:42 | NUR ---
ORDERED ORAL MEDICATION GIVEN WITH PATIENT'S LUNCH. PATIENT TOLERATED IT WELL. SAFETY, SEIZURE, ISOLATION, AND ASPIRATION PRECAUTION IN PLACE, CALL LIGHT WITHIN REACH, WILL CONTINUE TO MONITOR PATIENT.
[2018-07-10 16:00] VITALS: BP 122/73
--- NOTE | 2018-07-10 16:20 | NUR ---
ORDERED MEDICATIONS GIVEN. PATIENT TOLERATED THEM WELL. VITAL SIGNS WNL. RESPIRATIONS EVEN AND UNLABORED, PATIENT HAS NOT COMPLAINTS AT THIS TIME. SAFETY, ISOLATION, SEIZURE, AND ASPIRATION PRECAUTIONS IN PLACE, CALL LIGHT WITHIN REACH, WILL CONTINUE TO MONITOR PATIENT.
--- NOTE | 2018-07-10 17:12 | NUR ---
ORDERED MEDICATION GIVEN. PATIENT TOLERATED IT WELL. RESPIRATIONS EVEN AND UNLABORED, PATIENT HAS NO COMPLAINTS AT THIS TIME. SAFETY, ISOLATION, SEIZURE PRECAUTIONS IN PLACE, CALL LIGHT WITHIN REACH, WILL CONTINUE TO MONITOR PATIENT.
--- NOTE | 2018-07-10 19:35 | NUR ---
REPORT GIVEN TO SANDER WOODEN PENCILS RN AT BEDSIDE FOR CONTINUITY OF CARE. PATIENT IN STABLE CONDITION.
--- NOTE | 2018-07-10 19:36 | NUR ---
RECEIVED BEDSIDE REPORT. A&OX3. SPEECH DELAYED. RESPIRATIONS EVEN AND UNLABORED, NO DISTRESS OR SOB NOTED ON ROOM AIR. IV ON R FA 22G INFUSING NS AT 60ML/H. DISCUSSED PLAN OF CARE WITH PT, HE VERBALIZED UNDERSTANDING. PATIENT ON ISOLATION PRECAUTION FOR MRSA OF THE NARES CURRENTLY ON TREATMENTS. SAFETY, SEIZURE, AND ISOLATION PRECAUTION IN PLACE, BED IN LOWEST POSITION WITH BRAKES ON, CALL LIGHT WITHIN REACH, WILL CONTINUE TO MONITOR PATIENT.
--- NOTE | 2018-07-10 20:31 | NUR ---
DUE MEDICATIONS GIVEN. PT TOLERATED WELL.ALL NEEDS MET AT THIS TIME. CALL LIGHT WITHIN REACH. BED ALARM ON AND LOWEST POSITION. WILL CONTINUE TO MONITOR.
[2018-07-10] MEDS: ATORVASTATIN 20 MG TAB PO SCH (20:32)
[2018-07-10] MEDS: SERTRALINE 50 MG TAB PO SCH (20:34)
[2018-07-10] MEDS ORDERED: ZOLPIDEM 5 MG TAB PO SCH (23:00)
--- NOTE | 2018-07-10 23:00 | NUR ---
SPOKE WITH REGARDING PT REQUESTING MEDICATION TO HELP HIM SLEEP. WILL PUT IN NEW ORDER. WILL CONTINUE TO MONITOR.
[2018-07-10] MEDS ORDERED: COLISTIMETHATE SODIUM 150 MG VIAL ONE (23:22)
[2018-07-11] VITALS: BP 120/68
[2018-07-11] MEDS: CLINDAMYCIN PHOS 600MG/D5W PM 50 ML IV SCH ×4 (00:02→18:36)
--- NOTE | 2018-07-11 00:02 | NUR ---
CLINDAMYCIN INFUSING PER ORDERS. VITAL SIGNS ARE WITHIN NORMAL LIMITS. CALL LIGHT WITHIN REACH. WILL CONTINUE TO MONITOR.
--- NOTE | 2018-07-11 03:07 | NUR ---
PT SLEEPING. NO DISTRESS NOTED. SAFETY MEASURES IN PLACE.
--- NOTE | 2018-07-11 05:41 | NUR ---
PT ASLEEP. RESPIRATIONS ARE EQUAL AND UNLABORED. ALL SAFETY MEASURES ARE IN PLACE. CALL LIGHT WITHIN REACH.
--- NOTE | 2018-07-11 07:15 | NUR ---
ENDORSED PT TO DAY SHIFT RN. PT IN STABLE CONDITION.
[2018-07-11] MEDS: ALBUTEROL SULFATE/IPRATROPIU 3 ML SOL IH SCH ×3 (07:42→19:42)
[2018-07-11] MEDS: BUDESONIDE 0.5 MG/2 ML NEBU INH SCH ×2 (07:42→19:42)
[2018-07-11 07:47] LABS: BASOPHILS % (AUTO) 0.5 % (0.0-2.0); EOSINOPHILS # (AUTO) 0.3 K/uL (0-0.4); EOSINOPHILS % (AUTO) 5.6 % (0.0-4.0); HEMATOCRIT 32.4 % (36-52); HEMOGLOBIN 10.7 g/dL (12.0-18.0); LYMPHOCYTES # (AUTO) 1.7 K/uL (2.0-11.5); LYMPHOCYTES % (AUTO) 31.6 % (20.5-51.1); MEAN CORPUSCULAR HEMOGLOBIN 31 pg (27-31); MEAN CORPUSCULAR HGB CONC 33 g/dL (33-37); MEAN CORPUSCULAR VOLUME 94.4 fL (80-94); MONOCYTES # (AUTO) 0.5 K/uL (0.8-1.0); MONOCYTES % (AUTO) 9.8 % (1.7-9.3); NEUTROPHILS # (AUTO) 2.8 K/uL (1.8-7.7); NEUTROPHILS % (AUTO) 52.5 % (42.2-75.2); PLATELET COUNT (AUTO) 144 K/uL (140-450); RED BLOOD CELL COUNT(AUTO) 3.43 MIL/uL (4.20-6.10); RED CELL DISTRIBUTION WIDTH 13.7 % (11.6-13.7); WHITE BLOOD COUNT (AUTO) 5.3 K/uL (4.8-10.8)
[2018-07-11 08:00] VITALS: BP 155/83
[2018-07-11 08:05] LABS: CARBON DIOXIDE 28.3 mmol/L (21-32); POTASSIUM 4.3 mmol/L (3.5-5.1)
[2018-07-11 08:33] LABS: MAGNESIUM 1.7 mg/dL (1.8-2.4); PHOSPHORUS 3.9 mg/dL (2.5-4.9)
[2018-07-11] MEDS ORDERED: AZIT250T3 PO ×2 (08:41)
[2018-07-11] MEDS ORDERED: LACT1.4C PO (08:41)
[2018-07-11] MEDS ORDERED: FINA5TAB5 PO (08:43)
[2018-07-11] MEDS: LACTOBACILLUS RHAMNOSUS GG 1 EACH CAP PO SCH (09:35)
[2018-07-11] MEDS: LISINOPRIL 20 MG TAB PO SCH ×2 (09:35→20:33)
[2018-07-11] MEDS: ISOSORBIDE MONONITRATE 30 MG TABER PO SCH ×2 (09:35→20:31)
[2018-07-11] MEDS: CLOPIDOGREL 75 MG TAB PO SCH (09:35)
[2018-07-11] MEDS: SENNA 8.6 MG TAB PO SCH ×2 (09:35→20:32)
[2018-07-11] MEDS: FINASTERIDE 5 MG TAB PO SCH (09:35)
[2018-07-11] MEDS: amLODIPine 5 MG TAB PO SCH ×2 (09:35→20:33)
[2018-07-11] MEDS: ASCORBIC ACID 500 MG TAB PO SCH (09:35)
[2018-07-11] MEDS: TIMOLOL OP 0.5% 5 ML BTL RIGHT EYE SCH ×2 (09:36→20:33)
[2018-07-11] MEDS: RANOLAZINE 500 MG TER PO SCH ×2 (09:36→20:33)
[2018-07-11] MEDS: DORZOLAMIDE 2% OP 10 ML BTL RIGHT EYE SCH ×3 (09:37→17:39)
[2018-07-11] MEDS: BRIMONIDINE TARTRATE 0.2% OP 5 ML BTL RIGHT EYE SCH ×2 (09:37→20:34)
[2018-07-11] MEDS: DOCUSATE SODIUM 100 MG GELCAP PO SCH ×2 (09:37→20:31)
[2018-07-11] MEDS: CHLORHEXADINE GLUC 2% CLOTH TP SCH (09:37)
[2018-07-11] MEDS: MUPIROCIN CA NASAL 2% 1GM TUBE NS SCH (09:37)
--- NOTE | 2018-07-11 10:00 | NUR ---
ADMINISTERED SCHEDULED MEDS WITH APPLESAUCE. PATIENT IS LETHARGIC AND WAS NOT ABLE TO TAKE ALL OF HIS MEDICATIONS. PATIENT AT RISK FOR ASPIRATION. HOB ELEVATED. NOTFIFIED DR ORTIZ. WILL CONTINUE TO MONITOR.
--- NOTE | 2018-07-11 10:35 | NUR ---
CALLED [facility] AND SPOKE WITH YARED, MARBLE CUTTER. PER YARED, THEY ARE UNABLE TO TAKE THE PATIENT BACK UNTIL PATIENT HAS FINISHED ALL HIS ANTIBIOTIC TX. PER YARED, THEY ARE UNABLE TAKE THE PATIENT BACK EVEN WITH ORAL ANTIBIOTICS. DR ORTIZ NOTIFIED.
[2018-07-11] MEDS ORDERED: AZIT500P1 IV ×2 (11:14→11:15)
--- NOTE | 2018-07-11 13:27 | NUR ---
PATIENT IS LETHARGIC AND REFUSES TO EAT LUNCH. PATIENT ABLE TO RESPOND BY SHAKING AND NODDING HIS HEAD. NO S/S OF DISTRESS. PATIENT NODS WHEN ASKED WHEN HE FEELS TIRED. TEMP97.3 TAKEN ORALLY BP:144/66 HR 64 O2 SAT 94% ON ROOM AIR. PT EVALUATED BY DR ORTIZ. WILL CONTINUE TO MONITOR
[2018-07-11 16:00] VITALS: BP 144/66
--- NOTE | 2018-07-11 17:45 | NUR ---
PATIENT IS DROWSY AND REFUSES TO EAT DINNER. NO S/S OF DISTRESS NOTED. WILL CONTINUE TO MONITOR
--- NOTE | 2018-07-11 18:00 | NUR ---
CALLED PATIENT'S SISTER CLARA KRAUSE BUT CALL WENT STRAIGHT TO VOICE MAIL. LEFT VOICE MESSAGE
[2018-07-11] MEDS: NACL 0.9% 1,000 ML IV SCH (18:36)
--- NOTE | 2018-07-11 18:46 | NUR ---
GAVE PATIENT REPORT TO [facility]
--- NOTE | 2018-07-11 19:29 | NUR ---
PATIENT REPORT GIVEN AT BEDSIDE. PATIENT ENDORSED IN STABLE CONDITION
--- NOTE | 2018-07-11 19:30 | NUR ---
RECEIVED BEDSIDE REPORT. A&OX2. PT ANSWERS BY NODDING HEAD. RESPIRATIONS EVEN AND UNLABORED, NO DISTRESS OR SOB NOTED ON ROOM AIR. IV ON R FA 22G INFUSING NS AT 60ML/H. DISCUSSED PLAN OF CARE WITH PT, HE VERBALIZED UNDERSTANDING. PT BEING TRANSFERRED TO [facility] TO CONTINUE ANTIBIOTICS. TRANSPORT WILL BE AROUND 2100. PATIENT ON ISOLATION PRECAUTION FOR MRSA OF THE NARES CURRENTLY ON TREATMENTS. SAFETY, SEIZURE, AND ISOLATION PRECAUTION IN PLACE, BED IN LOWEST POSITION WITH BRAKES ON, CALL LIGHT WITHIN REACH, WILL CONTINUE TO MONITOR PATIENT
--- NOTE | 2018-07-11 19:58 | NUR ---
RECEIVED PATIENT ON ROOM AIR, O2 SAT 95%. SCHEDULED BREATHING TREATMENTS ADMINISTERED. PATIENT TOLERATED TX WELL, NO ADVERSE SIDE EFFECTS. ORAL CARE GIVEN POST TX. NO RESPIRATORY DISTRESS NOTED AT THIS TIME. WILL CONTINUE TO MONITOR.
[2018-07-11] MEDS: SERTRALINE 50 MG TAB PO SCH (20:31)
--- NOTE | 2018-07-11 20:31 | NUR ---
DUE MEDICATIONS GIVEN PT TOLERATED WELL. CRUSHED PILLS INTO APPLESAUCE. HOB ELEVATED 45 DEGREES. VITAL SIGNS ARE WITHIN NORMAL LIMITS. CALL LIGHT WITHIN REACH. WILL CONTINUE TO MONITOR.
[2018-07-11] MEDS: ATORVASTATIN 20 MG TAB PO SCH (20:32)
--- NOTE | 2018-07-11 22:25 | NUR ---
GAVE REPORT TO PREIER. PATIENT IS IN STABLE CONDITION. PT A&OX2. PT LEFT WITH IV ON L AC 20G SALINE LOCK. ARM BANDS WERE REMOVED. SKIN INTACT. ALL BELONGINGS WITH PATIENT AND DISCHARGE PACKET GIVEN. PT BEING TRANSFERRED TO [facility] REPORT WAS ALREADY GIVEN.
--- NOTE | 2018-07-11 22:30 | NUR ---
PATIENT LEFT THE UNIT ON [facility] WITH . PT IN STABLE CONDITION.
== END 2018-07-11 22:30 | DRG 137 ==
LOC: MED 10:36 → MTU 13:09
PROVIDERS: ADMIT General Practice; ATTEND General Practice
DX: J69.0 Pneumonitis due to inhalation of food and vomit (principal); E44.0 Moderate protein-calorie malnutrition; I69.354 Hemiplegia and hemiparesis following cerebral infarction affecting left non-dominant side; T68.XXXA Hypothermia, initial encounter; R13.10 Dysphagia, unspecified; N13.8 Other obstructive and reflux uropathy; E83.42 Hypomagnesemia; J44.9 Chronic obstructive pulmonary disease, unspecified; G40.909 Epilepsy, unspecified, not intractable, without status epilepticus; I10 Essential (primary) hypertension; E78.5 Hyperlipidemia, unspecified; E66.9 Obesity, unspecified; R80.9 Proteinuria, unspecified; R09.02 Hypoxemia; E03.9 Hypothyroidism, unspecified; H40.9 Unspecified glaucoma; F32.9 Major depressive disorder, single episode, unspecified; F71 Moderate intellectual disabilities; N40.1 Benign prostatic hyperplasia with lower urinary tract symptoms; K59.09 Other constipation; H54.61 Unqualified visual loss, right eye, normal vision left eye; Z71.3 Dietary counseling and surveillance; Z74.01 Bed confinement status; Z88.1 Allergy status to other antibiotic agents; Z79.02 Long term (current) use of antithrombotics/antiplatelets; Z79.899 Other long term (current) drug therapy; Z22.322 Carrier or suspected carrier of Methicillin resistant Staphylococcus aureus; Z68.29 Body mass index [BMI] 29.0-29.9, adult
CPT/HCPCS: 36415; 36600; 71045; 80048; 80053; 81003; 82803; 83036; 83605; 83690; 83735; 83880; 84100; 84134; 84443; 84484; 85025; 85610; 85730; 87040; 87081; 87086; 92610; 93005; 94640; 96365; 99285; C1758; J0696; J0770; J1956; J3490; J7030; J7060; J7620; J7626; Q0092

== ENCOUNTER 2018-07-17 11:39 | Inpatient (IN) | payer MEDICAID, MEDICARE ==
[~2018-07-17] VITALS: Ht 180.3 cm; Wt 78.0 kg
[~2018-07-17 11:39] MED LIST: ACET-7568 PO; AMLO5TAB PO; ASCO500T45 PO; ATOR20TA40 PO; AZIT500P1 IV; BRIM5SOL1 RIGHT EYE; CLON0.1T42 PO; CLOP75TA55 PO; DOCU-299 PO; DORZ10SO1 RIGHT EYE; FEXO180T82 PO; FINA5TAB5 PO; ISOS30TE34 PO; LACT1.4C PO; LAM200 PO; LISI-420 PO; MAGN400S60 PO; NITR0.4S14 SL; PRON INH; PUL.5N INH; RANEX500 PO; SENN-72 PO; SERT25TA PO; TIM.5OS RIGHT EYE; [UNRECOGNIZED DRUG - CODE] TP
[2018-07-17 11:50] VITALS: BP 144/81
--- NOTE | 2018-07-17 12:04 | NUR ---
67 YO M BIB CAREGIVER W/ C/O ABD PAIN X TODAY. PT D/C FROM HOSPITAL YESTERDAY FOR HYPOTHERMIA AND PNEUMONIA, PETER REPORTS THAT HIS COMPLAINTS ARE THE SAME LAST WEEK PRIOR TO ADMITTANCE 07/07. TEMP 95.6 AAOX4. ATE 100% OF BREAKFAST THIS MORNING. DENIES N/V/D. MRSA POSITIVE HX HTN, SEIZURE, STROKE W/ LEFT SIDED PARALYSIS, PROFOUND INTELLIGENT DISORDER RX ON FILE
--- NOTE | 2018-07-17 12:15 | NUR ---
RECTAL TEMP 93.7, [place] AHUJA MADE AWARE.
--- NOTE | 2018-07-17 12:36 | NUR ---
X RAY AT BEDSIDE
--- NOTE | 2018-07-17 12:36 | NUR ---
STRAIT CATH URINE : 300 CC,YELLOW.
[2018-07-17 13:01] LABS: BASOPHILS % (AUTO) 0.4 % (0.0-2.0); EOSINOPHILS # (AUTO) 0.2 K/uL (0-0.4); EOSINOPHILS % (AUTO) 5.1 % (0.0-4.0); HEMOGLOBIN 12.4 g/dL (12.0-18.0); LYMPHOCYTES # (AUTO) 1.5 K/uL (2.0-11.5); LYMPHOCYTES % (AUTO) 30.9 % (20.5-51.1); MEAN CORPUSCULAR HEMOGLOBIN 31 pg (27-31); MEAN CORPUSCULAR HGB CONC 33 g/dL (33-37); MEAN CORPUSCULAR VOLUME 94.6 fL (80-94); MONOCYTES # (AUTO) 0.5 K/uL (0.8-1.0); MONOCYTES % (AUTO) 9.5 % (1.7-9.3); NEUTROPHILS # (AUTO) 2.6 K/uL (1.8-7.7); NEUTROPHILS % (AUTO) 54.1 % (42.2-75.2); PLATELET COUNT (AUTO) 145 K/uL (140-450); RED BLOOD CELL COUNT(AUTO) 4.01 MIL/uL (4.20-6.10); RED CELL DISTRIBUTION WIDTH 13.9 % (11.6-13.7); WHITE BLOOD COUNT (AUTO) 4.8 K/uL (4.8-10.8)
[2018-07-17 13:07] LABS: APPEARANCE,URINE CLEAR (CLEAR); BILIRUBIN,URINE NEGATIVE (NEGATIVE); BLOOD, URINE NEGATIVE (NEGATIVE); COLOR,URINE YELLOW (YELLOW); LEUKOCYTE ESTERASE ,URINE NEGATIVE (NEGATIVE); NITRITE, URINE NEGATIVE (NEGATIVE); UGLUCOSE NEGATIVE (NEGATIVE)
[2018-07-17 13:12] LABS: PROTHROMBIN TIME 10.4 secs (10.8-13.4)
--- NOTE | 2018-07-17 13:14 | NUR ---
AUTUMN FROM LAB CALLED TO REPORT CRITICAL LAB FINDING OF PTT: 50.4. ER MD HO MADE AWARE.
[2018-07-17 13:32] LABS: RBC,URINE NONE SEEN /HPF (0-5); WBC,URINE 0-5 (RARE) /HPF (0-5)
--- NOTE | 2018-07-17 13:58 | NUR ---
PT'S SISTER: CLARA [phone] Addendum: 07/17/18 at 1359 by MED1 CPG REPORTED : PT HAS PACEMAKER LEFT CHEST.
[2018-07-17] MEDS ORDERED: NACL 0.9% 1,000 ML IV ONE (15:30)
[2018-07-17 15:32] LABS: ANION GAP 11.9 (8-16); CARBON DIOXIDE 26.9 mmol/L (21-32); CREATININE 1.1 mg/dL (0.7-1.3); POTASSIUM 4.8 mmol/L (3.5-5.1)
[2018-07-17 15:38] LABS: ALBUMIN 3.4 g/dL (3.4-5.0); TOTAL BILIRUBIN 0.3 mg/dL (0.0-1.0)
--- NOTE | 2018-07-17 15:52 | NUR ---
Patient appears to be SLEEPING comfortably in bed. Vital Signs within normal limits. Respirations even and unlabored.
[2018-07-17] MEDS ORDERED: cefTRIAXone 1,000 MG VIAL ONE (17:04)
[2018-07-17] MEDS ORDERED: SODIUM PHOSPHATE 118 ML ENEM RC PRN (17:10)
[2018-07-17] MEDS ORDERED: HYDROcodone/APAP 5/325 MG 1 TAB TAB PO PRN (17:10)
[2018-07-17] MEDS ORDERED: KETOROLAC 15 MG/ML VIAL IVP PRN (17:10)
[2018-07-17] MEDS ORDERED: LORazepam 2 MG/ML VIAL IM/IVP PRN (17:10)
[2018-07-17] MEDS ORDERED: cloNIDine 0.1 MG TAB PO PRN (17:10)
[2018-07-17] MEDS ORDERED: ONDANSETRON 4 MG/2 ML VIAL IM/IVP PRN (17:10)
[2018-07-17] MEDS ORDERED: MUPIROCIN 2% OINT 22 GM TUBE TP PRN (17:10)
[2018-07-17] MEDS ORDERED: DOCUSATE SODIUM 100 MG GELCAP PO PRN (17:10)
[2018-07-17] MEDS ORDERED: MORPHINE SULFATE 4 MG/ML SYR IVP PRN (17:10)
[2018-07-17] MEDS ORDERED: MAGNESIUM HYDROXIDE 2400 MG/30 ML UDC PO PRN (17:10)
[2018-07-17] MEDS ORDERED: BISACODYL 10 MG SUPP RC PRN (17:10)
[2018-07-17] MEDS ORDERED: ACETAMINOPHEN 325 MG TAB PO PRN (17:10)
[2018-07-17 17:36] LABS: MAGNESIUM 1.8 mg/dL (1.8-2.4); PHOSPHORUS 4.5 mg/dL (2.5-4.9)
--- NOTE | 2018-07-17 17:45 | NUR ---
RECEIVED BEDSIDE REPORT FROM ER NURSE. PATIENT IS AWAKE, NONVERBAL. PER SISTER HE DOES NOT COMMUNICATE WITH PEOPLE HE DOES NOT KNOW. HX MENTAL DELAY. FALL RISK PROTOCOL IN PLACE. FEW WARM BLANKETS GIVEN FOR DX HYPOTHERMIA. CONTACT PRECAUTIONS HX MRSA NARES. VITALS ARE WITHIN NORMAL LIMITS. TEMP 96.5. PATIENT BEDBOUND. SKIN INTACT W SCABS ON LAUREN SHINS. INCONTINENT. CONSTIPATED, PER FILLER AND TRIMMER BM UNKNOWN. SEIZURE PRECAUTIONS IN PLACE. BED IN LOW POSITION. CALL LIGHT WITHIN REACH WILL CONTINUE TO MONITOR THE PATIENT.
--- NOTE | 2018-07-17 17:45 | NUR ---
Patient will be admitted to care of dr kern. Admited to tele. Will go to [id number]. Belongings list completed. Report to jason godfrey.
[2018-07-17 17:47] LABS: FREE T4 (FREE THYROXINE) 0.9 ng/dL (0.76-1.46); THYROID STIMULATING HORMONE 2.06 uIU/mL (0.34-3.74)
[2018-07-17 18:00] VITALS: BP 149/86
--- NOTE | 2018-07-17 18:00 | NUR ---
IV INFUSING NS AT 60. CLEAN, DRY AND INTACT. SISTER CALLED AND SAID SHE IS CONSERVATOR. CLARA. NUMBER IS [phone]. SHE SAID SHE IS UPSET BECAUSE THEY KEEP CONTACTING METEOROLOGICAL EQUIPMENT REPAIRER YARED AND SHE SAID SHE IS THE DECISION MAKER. GAVE DR HINOJOSA HER NUMBER BECAUSE SHE WANTS TO TALK TO THE DOCTOR.
[2018-07-17] MEDS: NACL 0.9% 1,000 ML IV SCH (18:08)
--- NOTE | 2018-07-17 19:22 | NUR ---
GAVE BESIDE REPORT TO CHARGE ACCOUNTS AUDIT CLERK NURSE. PATIENT ENDORSED IN STABLE CONDITION
--- NOTE | 2018-07-17 19:23 | NUR ---
RECEIVED PT SLEEPING, MOANS TO TOUCH, NONVERBAL, VITAL SIGNS STABLE, FLACC-0, NO RESP DISTRESS NOTED, IVF INFUSING WELL, ON CONTACT ISOLATION, WILL REPOSITION Q2H AND OFFLOAD PRESSURE AREAS, SAFETY MEASURES IN PLACE, CALL LIGHT WITHIN REACH.
[2018-07-17 20:00] VITALS: BP 119/82
[2018-07-17] MEDS: BUDESONIDE 0.5 MG/2 ML NEBU INH SCH (20:00)
[2018-07-17] MEDS ORDERED: PIPERACILLIN/TAZOBACTAM 3.375 GM VIAL IV ONE (20:02)
[2018-07-17] MEDS: LISINOPRIL 20 MG TAB PO SCH (20:05)
[2018-07-17] MEDS: SERTRALINE 50 MG TAB PO SCH (20:05)
[2018-07-17] MEDS: PIPER/TAZO 3.375GM/D5W PREMIX 50 ML IV SCH (20:05)
[2018-07-17] MEDS: amLODIPine 5 MG TAB PO SCH (20:06)
[2018-07-17] MEDS: ATORVASTATIN 20 MG TAB PO SCH (20:06)
[2018-07-17] MEDS: ISOSORBIDE MONONITRATE 30 MG TABER PO SCH (20:06)
[2018-07-17] MEDS: SENNA 8.6 MG TAB PO SCH (20:06)
[2018-07-17] MEDS: TIMOLOL OP 0.5% 5 ML BTL RIGHT EYE SCH (20:08)
[2018-07-17] MEDS: RANOLAZINE 500 MG TER PO SCH (20:08)
[2018-07-17] MEDS ORDERED: NITROGLYCERIN 0.4 MG TAB SL PRN (20:45)
--- NOTE | 2018-07-17 20:45 | NUR ---
DUE MEDS CRUSHED AND GIVEN WITH APPLE SAUCE, TOLERATED WELL, PT VERBALLY RESPONSIVE WITH WORDS SUCH "WATER AND GOOD NIGHT", IVPB ZOSYN ADMINISTERED, MONITORED FOR REACTION, ALL NEEDS ANTICIPATED,
[2018-07-17] MEDS ORDERED: TIMOLOL OP 0.5% 5 ML BTL OP SCH (21:00)
[2018-07-17] MEDS: BRIMONIDINE TARTRATE 0.2% OP 5 ML BTL RIGHT EYE SCH (21:00)
[2018-07-17] MEDS ORDERED: BRIMONIDINE TARTRATE OP SCH (21:00)
[2018-07-18] VITALS: BP 113/75
--- NOTE | 2018-07-18 | NUR ---
PT SLEEPING, AROUSABLE BY MOVING HIS HEAD, VITAL SIGNS STABLE, NO RESP DISTRESS NOTED, IVF INFUSING WELL, CONTINUE TO MONITOR CLOSELY.
[2018-07-18 04:00] VITALS: BP 137/82
[2018-07-18] MEDS ORDERED: PIPERACILLIN/TAZOBACTAM 3.375 GM VIAL IV ONE (04:43)
[2018-07-18] MEDS: PIPER/TAZO 3.375GM/D5W PREMIX 50 ML IV SCH ×3 (04:45→20:11)
--- NOTE | 2018-07-18 04:50 | NUR ---
PT OPEN EYES TO NAME, NO BM THE WHOLE SHIFT, MEDICATED WITH COLACE AND MILK OF MAGNESIA PRN WITH ASPIRATION PRECAUTION, TOLERATED WELL, DUE ZOSYN IVPB ADMINISTERED, NO SEIZURE EPISODE THE WHOLE SHIFT, CONTINUE TO MONITORED CLOSELY.
--- NOTE | 2018-07-18 07:30 | NUR ---
PT SLEEPING, NO SIGNS OF DISTRESS, REPORT GIVEN TO MARIZA BRITO FOR CONTINUITY OF CARE.
--- NOTE | 2018-07-18 07:31 | NUR ---
RECEIVED REPORT FROM MARKETING ADMINISTRATOR NURSE. PATIENT LYING DOWN IN BED SLEEPING, AROUSABLE BY VOICE. NO DISTRESS NOTED. DENIES ANY PAIN. AAOX1, CALM, COOPERATIVE, SKIN COLOR APPROPRIATE TO ETHNICITY, WARM TO TOUCH. SKIN IS INTACT. IV SITE INTACT, PATENT, AND INFUSING IVF PER MD ORDERS. ABDOMEN SOFT. LUNGS CTA ON ALL LOBES. REVIEWED PLAN OF CARE WITH PATIENT. PATIENT VERBALIZED UNDERSTANDING. SAFETY MEASURES IN PLACE, CALL LIGHT WITHIN REACH. WILL CONTINUE TO MONITOR.
[2018-07-18 07:50] LABS: BASOPHILS % (AUTO) 0.6 % (0.0-2.0); EOSINOPHILS # (AUTO) 0.2 K/uL (0-0.4); EOSINOPHILS % (AUTO) 6.2 % (0.0-4.0); HEMATOCRIT 36.7 % (36-52); HEMOGLOBIN 11.8 g/dL (12.0-18.0); LYMPHOCYTES # (AUTO) 1.1 K/uL (2.0-11.5); LYMPHOCYTES % (AUTO) 28.3 % (20.5-51.1); MEAN CORPUSCULAR HEMOGLOBIN 30 pg (27-31); MEAN CORPUSCULAR HGB CONC 32 g/dL (33-37); MEAN CORPUSCULAR VOLUME 94.3 fL (80-94); MONOCYTES # (AUTO) 0.3 K/uL (0.8-1.0); NEUTROPHILS # (AUTO) 2.2 K/uL (1.8-7.7); NEUTROPHILS % (AUTO) 56.9 % (42.2-75.2); PLATELET COUNT (AUTO) 127 K/uL (140-450); RED BLOOD CELL COUNT(AUTO) 3.89 MIL/uL (4.20-6.10); RED CELL DISTRIBUTION WIDTH 13.3 % (11.6-13.7)
[2018-07-18 08:00] VITALS: BP 157/92
[2018-07-18 08:37] LABS: ANION GAP 10.1 (8-16); CARBON DIOXIDE 31.5 mmol/L (21-32); CREATININE 0.8 mg/dL (0.7-1.3); POTASSIUM 4.6 mmol/L (3.5-5.1)
[2018-07-18 08:43] LABS: MAGNESIUM 1.7 mg/dL (1.8-2.4)
[2018-07-18] MEDS: CLOPIDOGREL 75 MG TAB PO SCH (08:46)
[2018-07-18] MEDS: ASCORBIC ACID 500 MG TAB PO SCH (08:46)
[2018-07-18] MEDS: amLODIPine 5 MG TAB PO SCH ×2 (08:46→20:06)
[2018-07-18] MEDS: FINASTERIDE 5 MG TAB PO SCH (08:47)
[2018-07-18] MEDS: SENNA 8.6 MG TAB PO SCH ×2 (08:47→20:07)
[2018-07-18] MEDS: ISOSORBIDE MONONITRATE 30 MG TABER PO SCH ×2 (08:47→20:06)
[2018-07-18] MEDS: LISINOPRIL 20 MG TAB PO SCH ×2 (08:47→20:06)
[2018-07-18] MEDS: RANOLAZINE 500 MG TER PO SCH ×2 (08:47→20:07)
[2018-07-18] MEDS: LACTOBACILLUS RHAMNOSUS GG 1 EACH CAP PO SCH (08:48)
--- NOTE | 2018-07-18 08:54 | NUR ---
PATIENT SITTING IN BED WATCHING TV. NO DISTRESS NOTED. DENIES ANY PAIN. SCHEDULED MEDICATIONS DUE GIVEN. PATIENT ABLE TO SWALLOW ALL PO MEDICATIONS WITHOUT CRUSHING. SAFETY MEASURES IN PLACE, CALL LIGHT WITHIN REACH. WILL CONTINUE TO MONITOR.
[2018-07-18] MEDS ORDERED: DORZOLAMIDE 2% OP 10 ML BTL OP SCH (09:00)
[2018-07-18] MEDS: BUDESONIDE 0.5 MG/2 ML NEBU INH SCH ×2 (09:27→20:29)
[2018-07-18] MEDS: ALBUTEROL SULFATE/IPRATROPIU 3 ML SOL IH PRN (09:27)
[2018-07-18] MEDS: BRIMONIDINE TARTRATE 0.2% OP 5 ML BTL RIGHT EYE SCH ×2 (09:53→20:07)
[2018-07-18] MEDS: TIMOLOL OP 0.5% 5 ML BTL RIGHT EYE SCH ×2 (09:54→20:08)
[2018-07-18] MEDS: DORZOLAMIDE 2% OP 10 ML BTL RIGHT EYE SCH ×3 (09:55→16:24)
[2018-07-18] MEDS: MAGNESIUM OXIDE 400 MG TAB PO SCH ×2 (10:02→20:06)
[2018-07-18] MEDS: NACL 0.9% 1,000 ML IV SCH (10:02)
--- NOTE | 2018-07-18 10:50 | NUR ---
ASSISTED RING BARKER OPERATOR IN CLEANING AND REPOSITIONING PATIENT. WILL CONTINUE TO MONITOR.
--- NOTE | 2018-07-18 12:14 | NUR ---
PATIENT HAS BEEN SCREENED AND CATEGORIZED MODERATE NUTRITION RISK. PATIENT WILL BE SEEN WITHIN 3-5 DAYS OF ADMISSION. 07/20/18 07/22/18 ALFA JOSE MBA, RD
--- NOTE | 2018-07-18 12:17 | NUR ---
PATIENT LYING DOWN IN BED SLEEPING, NO DISTRESS NOTED. DENIES ANY PAIN. SCHEDULED MEDICATIONS DUE GIVEN. SAFETY MEASURES IN PLACE, CALL LIGHT WITHIN REACH. WILL CONTINUE TO MONITOR.
--- NOTE | 2018-07-18 14:30 | NUR ---
ASSISTED DELPHI PROGRAMMER IN CLEANING PATIENT. CONDITION UNCHANGED. WILL CONTINUE TO MONITOR.
[2018-07-18 16:00] VITALS: BP 132/70
--- NOTE | 2018-07-18 16:24 | NUR ---
PATIENT LYING DOWN IN BED SLEEPING, AROUSABLE BY VOICE. NO DISTRESS NOTED. DENIES ANY PAIN. SCHEDULED MEDICATIONS DUE GIVEN. WILL CONTINUE TO MONITOR.
--- NOTE | 2018-07-18 17:19 | NUR ---
PATIENT LYING DOWN IN BED SLEEPING, AROUSABLE BY VOICE. NO DISTRESS NOTED. DENIES ANY PAIN. CONDITION UNCHANGED. WILL CONTINUE TO MONITOR.
--- NOTE | 2018-07-18 18:44 | NUR ---
JR SUPPLEMENT GIVEN VIA [employer]. PATIENT TOLERATED WELL. NO VOMITING. WILL CONTINUE TO MONITOR.
--- NOTE | 2018-07-18 19:16 | NUR ---
GAVE REPORT TO TOW BAR DRIVER NURSE. PATIENT IN STABLE CONDITION.
--- NOTE | 2018-07-18 19:17 | NUR ---
RECEIVED PT ASLEEP, EASILY AROUSABLE, VERBALLY RESPONSIVE, VITAL SIGNS STABLE, NO SOB NOTED, COMPLAINING OF NAUSEA BUT NO VOMITING NOTED, WILL MEDICATE PRN, IVF INFUSING WELL, SAFETY MEASURES IN PLACE, WILL REPOSITION Q2H AND OFFLOAD PRESSURE AREAS, SIDE RAILS UP AND BED ALARM ON, CALL LIGHT WITHIN REACH.
[2018-07-18] MEDS: SERTRALINE 50 MG TAB PO SCH (20:05)
[2018-07-18] MEDS: ATORVASTATIN 20 MG TAB PO SCH (20:07)
--- NOTE | 2018-07-18 20:10 | NUR ---
DUE PO MEDICATIONS ADMINISTERED, NO BM FOR SEVERAL DAYS, DULCOLAX SUPP GIVEN PRN, INCONTINENT OF URINE, PERINEAL CARE DONE, REPOSITIONED AND OFFLOAD PRESSURE AREAS, ALL NEEDS ATTENDED.
--- NOTE | 2018-07-18 22:40 | NUR ---
PT HAD LARGE WELL FORMED BM, PERINEAL CARE DONE, MONITORED CLOSELY.
[2018-07-19] VITALS: BP 123/68
[2018-07-19] MEDS: PIPER/TAZO 3.375GM/D5W PREMIX 50 ML IV SCH ×3 (04:14→20:39)
[2018-07-19] MEDS: NACL 0.9% 1,000 ML IV SCH ×3 (04:15→23:34)
--- NOTE | 2018-07-19 04:15 | NUR ---
PT SLEEPING, EASILY AROUSABLE, DUE ZOSYN IVPB ADMINISTERED, PROVIDED WITH ORANGE JUICE PER REQUEST, TOLERATED WELL, MONITORED CLOSELY.
--- NOTE | 2018-07-19 06:20 | NUR ---
PT SLEEPING, NO SIGNS OF DISTRESS, SIDE RAILS UP AND PADDED, NO SEIZURE EPISODE THE WHOLE SHIFT, IVF INFUSING WELL, MONITORED CLOSELY.
--- NOTE | 2018-07-19 07:14 | NUR ---
PT SLEEPING, EASILY AROUSABLE, NO DISTRESS NOTED, REPORT GIVEN TO RN SITAL FOR CONTINUITY OF CARE.
[2018-07-19 08:00] VITALS: BP 149/88
[2018-07-19 08:18] LABS: BASOPHILS % (AUTO) 0.4 % (0.0-2.0); EOSINOPHILS # (AUTO) 0.2 K/uL (0-0.4); EOSINOPHILS % (AUTO) 5.6 % (0.0-4.0); HEMATOCRIT 34.2 % (36-52); HEMOGLOBIN 11.3 g/dL (12.0-18.0); LYMPHOCYTES # (AUTO) 1.5 K/uL (2.0-11.5); LYMPHOCYTES % (AUTO) 38.4 % (20.5-51.1); MEAN CORPUSCULAR HEMOGLOBIN 31 pg (27-31); MEAN CORPUSCULAR HGB CONC 33 g/dL (33-37); MEAN CORPUSCULAR VOLUME 93.8 fL (80-94); MONOCYTES # (AUTO) 0.4 K/uL (0.8-1.0); MONOCYTES % (AUTO) 9.3 % (1.7-9.3); NEUTROPHILS # (AUTO) 1.8 K/uL (1.8-7.7); NEUTROPHILS % (AUTO) 46.3 % (42.2-75.2); PLATELET COUNT (AUTO) 122 K/uL (140-450); RED BLOOD CELL COUNT(AUTO) 3.64 MIL/uL (4.20-6.10); RED CELL DISTRIBUTION WIDTH 13.7 % (11.6-13.7); WHITE BLOOD COUNT (AUTO) 3.8 K/uL (4.8-10.8)
[2018-07-19] MEDS: BUDESONIDE 0.5 MG/2 ML NEBU INH SCH ×2 (08:28→19:24)
[2018-07-19] MEDS: ALBUTEROL SULFATE/IPRATROPIU 3 ML SOL IH PRN ×2 (08:28→19:24)
--- NOTE | 2018-07-19 08:28 | NUR ---
RECEIVED REPORT FROM PM NURSE AT BEDSIDE. PT ON CONTACT ISO FOR HX MRSA NARES. PT HAS RT FA 22 G, NS IVF INFUSING AT 60 ML/HR.. IS DEVELOPMENTALLY DELAYED, WITH LFT SIDE HEMIPARESIS. HAS RT EYE BLINDNESS. PT CAN SPEAK , COMMUNICATES WELL. ALL SAFETY MEASURE IN PLACE. NO SIGN OF DISTRESS NOTED. INFORMED HIM TO USE CALL LIGHT FOR ANY HELP. WILL CONTINUE TO MONITOR PT.
[2018-07-19] MEDS: CLOPIDOGREL 75 MG TAB PO SCH (09:00)
[2018-07-19] MEDS: LISINOPRIL 20 MG TAB PO SCH ×2 (09:00→20:41)
[2018-07-19] MEDS: amLODIPine 5 MG TAB PO SCH ×2 (09:00→20:40)
[2018-07-19] MEDS: BRIMONIDINE TARTRATE 0.2% OP 5 ML BTL RIGHT EYE SCH ×2 (09:00→20:41)
[2018-07-19] MEDS: LACTOBACILLUS RHAMNOSUS GG 1 EACH CAP PO SCH (09:00)
[2018-07-19] MEDS: ISOSORBIDE MONONITRATE 30 MG TABER PO SCH ×2 (09:00→20:39)
[2018-07-19] MEDS: ASCORBIC ACID 500 MG TAB PO SCH (09:00)
[2018-07-19] MEDS: FINASTERIDE 5 MG TAB PO SCH (09:00)
[2018-07-19] MEDS: TIMOLOL OP 0.5% 5 ML BTL RIGHT EYE SCH ×2 (09:00→20:41)
[2018-07-19] MEDS: RANOLAZINE 500 MG TER PO SCH ×2 (09:00→20:40)
[2018-07-19] MEDS: DORZOLAMIDE 2% OP 10 ML BTL RIGHT EYE SCH ×3 (09:00→17:54)
[2018-07-19] MEDS: SENNA 8.6 MG TAB PO SCH ×2 (09:00→20:41)
[2018-07-19 09:08] LABS: ANION GAP 9.6 (8-16); CARBON DIOXIDE 29.1 mmol/L (21-32); POTASSIUM 4.7 mmol/L (3.5-5.1)
--- NOTE | 2018-07-19 09:58 | NUR ---
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 WILL ADMINISTER MEDS ONCE HE GETS BACK FROM CT .
--- NOTE | 2018-07-19 10:41 | NUR ---
PT BACK FORM CT ROOM. BP 130/82, RR 20. T 96.3. REFUSED TO TAKE ANY MEDS. ASKED IF HE WANTS APPLE SAUCE, DENIES. ASKED HIM IF WE CAN ADMINISTER MEDS LATER, DENIES. PT CLOSED EYES, NODED HEAD FOR NO. NO SIGN OF DISTRESS NOTED. WILL CONTINUE TO MONITOR PT.
--- NOTE | 2018-07-19 12:50 | NUR ---
ADMINISTERED ZOSYN TO PT. TOLERATED WELL. ASKED IF HE WANTS TO TAKE NAY MEDS FROM MORNING, DENIES. PER EMERGENCY MEDICINE NURSE PRACTITIONER, PT DENIES FOOD. ASKED HIM IF HE WANTS FOOD, NODED HIS HEAD FOR NO. NO SIGN OF DISTRESS IN PT. WILL CONTINUE TO MONITOR PT.
--- NOTE | 2018-07-19 14:16 | NUR ---
CHECKED ON PT. SLEEPING IN BED. MARIZA REVELES CALLED REGARDING PT UPDATE. ADMINISTERED MEDS ON PT RT EYE TOLERATED . NO SIGN OF DISTRESS NOTED. WILL CONTINUE TO MONITOR PT.
[2018-07-19 16:00] VITALS: BP 145/65
--- NOTE | 2018-07-19 17:30 | NUR ---
CHECKED ON PT. [employer] TRIMMER JOAQUIM PRADO MATTY ANITA WANTED TO UPDATE ON PT. PER ANITA, PT'S SISTER CALLED HIM AND STATES THAT PT VERBALIZED OF NOT WANTING TO LIVE ANY MORE. WANTED TO REQUEST FOR PSYCH CONSULT TO PT. ANITA STATES THAT WITH HIM , PT VERBALIZED NOT WANTED TO LIVE ANYMORE. DR SHEPHERD NOTIFIED . STATES WILL CONSULT WITH DR BIRD AND ORDER FOR PSYCH CONSULT. LAB CALLED REGARDING SPUTUM BEING CONTAMINATED , NEEDS TO RECOLLECT THE SPUTUM. AWARE, PUT NEW ORDER FOR SPUTUM COLLECTION. RT VAIL AWARE, TO COLLECT THE SPUTUM. WILL CONTINUE TO MONITOR PT.
--- NOTE | 2018-07-19 17:56 | NUR ---
ADMINISTERED EYE DROPS ON PT ORDERED . TOLERATED WELL. PT WITH LUIS ENRIQUE MASON BIOLOGICAL AIDE [phone]. PLAYONG MUSIC AT BEDSIDE. PT SLEEPING COMFORTABLY . WILL CONTINUE TO MONITOR PT.
--- NOTE | 2018-07-19 19:25 | NUR ---
RECEIVED REPORT FROM DAY SHIFT NURSE, ZULMA, AT PT BEDSIDE. PT IN STABLE CONDITION. PT IS AAOX2. PT IS ON RA WITH RESPIRATIONS EVEN AND UNLABORED. IV ACCESS R WRIST 22G WITH IVF RUNNING PER MD ORDERS. IV IS PATENT AND INTACT. SKIN IS INTACT. NO C/O PAIN AT THIS TIME. BED IS LOCKED, LOW POSITION WITH SIDE RAILS UP X2. CALL LIGHT IS WITHIN REACH, BOARD UPDATED. WILL CONTINUE TO MONITOR.
--- NOTE | 2018-07-19 19:25 | NUR ---
endorsed pt to pm nurse at bedside. pt in stable condition.
--- NOTE | 2018-07-19 19:50 | NUR ---
RT AT BEDSIDE. ASKED RT TO COLLECT SPUTUM SAMPLE BUT UNSUCCESSFUL.
[2018-07-19] MEDS: ATORVASTATIN 20 MG TAB PO SCH (20:40)
[2018-07-19] MEDS: SERTRALINE 50 MG TAB PO SCH (20:41)
--- NOTE | 2018-07-19 20:42 | NUR ---
PT HAS SHEET COVERING HEAD. WHEN ASKED PT TO REMOVE SHEET SO I COULD TALK TO HIM HE SHOOK HIS HEAD NO. ASKED PT IF HE WOULD TAKE HIS SCHEDULED MEDICATION AND PT SHOOK HIS HEAD NO. ASKED PT WHY HE DID NOT WAN THIS MEDICATIONS AND PT CONTINUED TO SHAKE HEAD "NO". ALL SCHEDULED MEDICATIONS NON ADMINISTERED.
--- NOTE | 2018-07-19 23:35 | NUR ---
NEW BAG OF IVF STARTED. PT RESTING IN BED COMFORTABLY. NO S/SX OF DISTRESS. WILL CONTINUE TO MONITOR.
[2018-07-20] VITALS: BP 145/69
[2018-07-20] MEDS: PIPER/TAZO 3.375GM/D5W PREMIX 50 ML IV SCH ×2 (04:53→15:04)
--- NOTE | 2018-07-20 04:53 | NUR ---
ADMINISTERED SCHEDULED ANTIBIOTIC. PT RESTING COMFORTABLY IN BED. NO C/O PAIN. NO S/SX OF DISTRESS. WILL CONTINUE TO MONITOR.
--- NOTE | 2018-07-20 07:20 | NUR ---
RECEIVED PT REPORT FROM SENIOR DESIGN ENGINEER NURSE. PT IS AWAKE, A&O X 2. NO S/S OF DISTRESS, NO SOB, NO C/O PAIN AT THIS TIME. SKIN IS INTACT, PT IS ON ROOM AIR. IV SITE NOTED ON THE R WRIST, 22 GAUGE, INFUSING NS 60 ML/HR. PT IS INCONTINENT OF URINE AND BOWEL. PT IS ON CONTACT ISOLATION FOR HX OF MRSA NARES. FALL PRECAUTIONS ARE IN PLACE. CALL LIGHT WITHIN REACH. WILL CONTINUE TO MONITOR.
[2018-07-20] MEDS: ALBUTEROL SULFATE/IPRATROPIU 3 ML SOL IH PRN (07:27)
[2018-07-20] MEDS: BUDESONIDE 0.5 MG/2 ML NEBU INH SCH ×2 (07:35→19:44)
--- NOTE | 2018-07-20 07:36 | NUR ---
ENDORSED PT TO DAY SHIFT NURSE FOR CONTINUITY OF CARE. PT IN STABLE CONDITION.
[2018-07-20 08:00] VITALS: BP 92/42
[2018-07-20] MEDS: LISINOPRIL 20 MG TAB PO SCH (09:00)
[2018-07-20] MEDS: amLODIPine 5 MG TAB PO SCH (09:00)
[2018-07-20] MEDS: RANOLAZINE 500 MG TER PO SCH (09:43)
[2018-07-20] MEDS: CLOPIDOGREL 75 MG TAB PO SCH (09:44)
[2018-07-20] MEDS: ISOSORBIDE MONONITRATE 30 MG TABER PO SCH (09:44)
[2018-07-20] MEDS: ASCORBIC ACID 500 MG TAB PO SCH (09:45)
[2018-07-20] MEDS: LACTOBACILLUS RHAMNOSUS GG 1 EACH CAP PO SCH (09:46)
[2018-07-20] MEDS: SENNA 8.6 MG TAB PO SCH (09:47)
[2018-07-20] MEDS: FINASTERIDE 5 MG TAB PO SCH (09:47)
[2018-07-20] MEDS: TIMOLOL OP 0.5% 5 ML BTL RIGHT EYE SCH (09:48)
[2018-07-20] MEDS: DORZOLAMIDE 2% OP 10 ML BTL RIGHT EYE SCH ×3 (09:49→17:53)
[2018-07-20] MEDS: BRIMONIDINE TARTRATE 0.2% OP 5 ML BTL RIGHT EYE SCH (09:49)
--- NOTE | 2018-07-20 10:00 | NUR ---
PT TOOK ALL HIS SCHEDULED AM MEDS, TOLERATED WELL. ATE MOST OF HIS BREAKFAST. NO S/S OF ACUTE DISTRESS NOTED, NO SOB. WILL CONTINUE TO MONITOR.
[2018-07-20 11:51] LABS: BASOPHILS % (AUTO) 0.6 % (0.0-2.0); EOSINOPHILS # (AUTO) 0.1 K/uL (0-0.4); EOSINOPHILS % (AUTO) 3.7 % (0.0-4.0); HEMATOCRIT 32.3 % (36-52); HEMOGLOBIN 10.6 g/dL (12.0-18.0); LYMPHOCYTES # (AUTO) 1.1 K/uL (2.0-11.5); LYMPHOCYTES % (AUTO) 28.6 % (20.5-51.1); MEAN CORPUSCULAR HEMOGLOBIN 31 pg (27-31); MEAN CORPUSCULAR HGB CONC 33 g/dL (33-37); MEAN CORPUSCULAR VOLUME 93.7 fL (80-94); MONOCYTES # (AUTO) 0.3 K/uL (0.8-1.0); MONOCYTES % (AUTO) 8.8 % (1.7-9.3); NEUTROPHILS # (AUTO) 2.2 K/uL (1.8-7.7); NEUTROPHILS % (AUTO) 58.3 % (42.2-75.2); PLATELET COUNT (AUTO) 120 K/uL (140-450); RED BLOOD CELL COUNT(AUTO) 3.45 MIL/uL (4.20-6.10); RED CELL DISTRIBUTION WIDTH 13.8 % (11.6-13.7); WHITE BLOOD COUNT (AUTO) 3.8 K/uL (4.8-10.8)
[2018-07-20 12:01] LABS: ANION GAP 12.1 (8-16); CARBON DIOXIDE 27.7 mmol/L (21-32); POTASSIUM 3.8 mmol/L (3.5-5.1)
[2018-07-20 12:21] LABS: MAGNESIUM 1.9 mg/dL (1.8-2.4); PHOSPHORUS 2.1 mg/dL (2.5-4.9)
[2018-07-20] MEDS ORDERED: AZIT1PDR6 PO (12:44)
--- NOTE | 2018-07-20 13:25 | NUR ---
SPUTUM SAMPLE CUP LEFT AT BEDSIDE
[2018-07-20 16:00] VITALS: BP 121/55
--- NOTE | 2018-07-20 16:30 | NUR ---
SPOKE WITH PT'S SISTER CLARA, SHE SAYS SHE WANTS THE PATIENT TO BE TRANSFERRED TO A CORRECTION. WAS NOTIFIED.
--- NOTE | 2018-07-20 17:00 | NUR ---
PT'S SISTER AND CAREGIVER ARE AGREEABLE WITH TRANSFERRING PT BACK TO HIS [facility]. THE [facility] HAS BROKEN DOWN, SO THEY ARE UNABLE TO DRIVE HIM BACK. MAICO VIERA TALKED TO MATTY, THE FACILITY REP, IF HE WANTS TO USE [facility]. MATTY DECLINED, AND SAID HE IS GOING TO ARRANGE HIS OWN TRANSPORT FOR PT.
--- NOTE | 2018-07-20 18:32 | NUR ---
WAITING FOR PT'S CAREGIVER TO ARRANGE TRANSPORTATION FOR HIS TRANSFER TO [facility].
--- NOTE | 2018-07-20 19:35 | NUR ---
PT ENDORSED TO PEDIATRICIAN ACTIVE PRACTICE NURSE IN STABLE CONDITION
--- NOTE | 2018-07-20 20:00 | NUR ---
PT FOR DISCHARGE TO [facility]. IV ACCESS AND ID BAND REMOVED. NO BLEEDING NOTED ON THE IV SITE. DISCHARGE INSTRUCTION GIVEN TO WILL , CAREGIVER. SIGNED ALL PAPERS. PT/CAREGIVER VERBALIZED UNDERSTANDING. DISCHARGE BY OWN WHEELCHAIR . PT IN STABLE CONDITION UPON DISCHARGE.
== END 2018-07-20 20:00 | DRG 137 ==
LOC: MED 11:39 → MTU 16:30
PROVIDERS: ADMIT General Practice; ATTEND General Practice
DX: J69.0 Pneumonitis due to inhalation of food and vomit (principal); N17.0 Acute kidney failure with tubular necrosis; R65.11 Systemic inflammatory response syndrome (SIRS) of non-infectious origin with acute organ dysfunction; T68.XXXA Hypothermia, initial encounter; N13.8 Other obstructive and reflux uropathy; E83.42 Hypomagnesemia; J44.0 Chronic obstructive pulmonary disease with (acute) lower respiratory infection; E03.9 Hypothyroidism, unspecified; I10 Essential (primary) hypertension; G40.909 Epilepsy, unspecified, not intractable, without status epilepticus; H40.9 Unspecified glaucoma; H54.61 Unqualified visual loss, right eye, normal vision left eye; F71 Moderate intellectual disabilities; E78.5 Hyperlipidemia, unspecified; N40.1 Benign prostatic hyperplasia with lower urinary tract symptoms; K59.09 Other constipation; J98.11 Atelectasis; F32.9 Major depressive disorder, single episode, unspecified; I20.9 Angina pectoris, unspecified; I69.354 Hemiplegia and hemiparesis following cerebral infarction affecting left non-dominant side; Z79.899 Other long term (current) drug therapy; Z95.0 Presence of cardiac pacemaker; Z88.8 Allergy status to other drugs, medicaments and biological substances
CPT/HCPCS: 36415; 70450; 71045; 80048; 80053; 81001; 82150; 82550; 83605; 83690; 83735; 83880; 84100; 84439; 84443; 84479; 84484; 85025; 85610; 85730; 87040; 87070; 87081; 87086; 87205; 89220; 93005; 94640; 96361; 96365; 99285; C1758; J0696; J2405; J2543; J7030; J7060; J7620; J7626; Q0092